=== PATIENT | female | born 2000 | race Asian ===

== ENCOUNTER 2022-07-23 10:14 | Inpatient (IN) ==
[2022-07-23] MEDS ORDERED: NS 0.9% 1000 ml BAG 1,000 ML IV ONE (10:42)
[2022-07-23 11:56] LABS: ALT 12 U/L (7-52); Acetaminophen < 15 mcg/mL; Albumin 4.8 g/dL (3.2-5.2); Albumin/Globulin Ratio 1.9 (1-3); Alcohol, S < 13 mg/dL (<13); Alkaline Phosphatase 74 U/L (35-149); Blood Urea Nitrogen 10 mg/dL (6-24); CO2 Carbon Dioxide 28 mmol/L (22-32); Calcium 9.1 mg/dL (8.6-10.3); Chloride 101 mmol/L (101-111); Creatine Kinase 76 U/L (10-223); Creatinine, Serum 0.53 mg/dL (0.51-0.95); Globulin 2.5 g/dL (2-4); Glucose 92 mg/dL (70-100); Lipase 18 U/L (11.0-82.0); Magnesium 2.1 mg/dL (1.9-2.7); Salicylate < 2.50 mg/dL (<30); Total Protein 7.3 g/dL (6.4-8.9); eGFR CKD-EPI 134.9 (>60)
[2022-07-23 12:00] LABS: Anion Gap 5 mmol/L (2-11); Sodium 134 mmol/L (135-145)
[2022-07-23 12:02] LABS: HCG Pregnancy < 0.60 mIU/mL
[2022-07-23 12:11] LABS: TSH Ultra Thyroid Stim Horm 1.28 mcIU/mL (0.34-5.60)
[2022-07-23 12:33] LABS: Hematocrit 36 % (35-47); Hemoglobin 11.8 g/dL (12.0-16.0); Mean Corpuscular HGB Conc 33 g/dL (31-36); Mean Corpuscular Hemoglobin 31 pg (27-31); Mean Corpuscular Volume 95 fL (80-97); Mean Platelet Volume 6.9 fL (7.4-10.4); Platelet Count 262 10^3/uL (150-450); Red Cell Distribution Width 12 % (10-15); White Blood Count 5.6 10^3/uL (3.5-10.8)
[2022-07-23 12:36] LABS: ABS Eosinophils 0.1 10^3/ul (0-0.6); ABS Lymphocytes 1.9 10^3/ul (1.0-4.8); ABS Monocytes 0.3 10^3/ul (0-0.8); Eosinophil % 1.9 %; Lymphocyte % 36.1 %; Nucleated Red Blood Cells % 0.1
[2022-07-23 12:57] LABS: Potassium Redraw 3.9 mmol/L (3.5-5.0)
[2022-07-23 13:41] LABS: Urine Appearance Cloudy; Urine Bilirubin Negative (Negative); Urine Blood Negative (Negative); Urine Color Amber; Urine Glucose Negative (Negative); Urine Ketones 2+ (Negative); Urine Nitrite Negative (Negative); Urine Protein Negative (Negative); Urine Specific Gravity 1.025 (1.002-1.030); Urine Urobilinogen Negative (Negative)
[2022-07-23 13:57] LABS: Urine Bacteria Absent (Absent); Urine Red Blood Cell 3+(>10/hpf) (Absent); Urine Squamous Epithelial Cell Present (Absent); Urine White Blood Cell Trace(0-5/hpf) (Absent)
[2022-07-23 14:04] LABS: Urine Benzodiazepine Screen Presumptive Positive (None Detect); Urine Cannabinoids Screen None Detected (None Detect); Urine Opiates Screen None Detected (None Detect)
[2022-07-23] MEDS ORDERED: Al Hydrox/Mg Hydrox/Simet LIQ 30 ML UDC PO PRN (15:17)
[2022-07-24] MEDS: Vitamin THERAPEUTIC TAB PO SCH (10:57)
[2022-07-25 07:24] LABS: HDL Cholesterol 48.4 mg/dL
[2022-07-25 07:53] VITALS: BP 104/70
[2022-07-25] MEDS: Vitamin THERAPEUTIC TAB PO SCH (09:50)
== END 2022-07-25 14:00 | disposition home or self-care (01) | DRG 884 ==
LOC: EDBD → ED 10:14 → EDHOLD 15:17 → BSU 18:41
PROVIDERS: ADMIT Psychiatry & Neurology Psychiatry; ATTEND Psychiatry & Neurology Psychiatry

== ENCOUNTER 2022-07-26 03:43 | Inpatient (IN) ==
[2022-07-26 06:43] LABS: Urine Benzodiazepine Screen None Detected (None Detect); Urine Cannabinoids Screen None Detected (None Detect); Urine Opiates Screen None Detected (None Detect)
[2022-07-26] MEDS: Vitamin THERAPEUTIC TAB PO SCH (07:49)
[2022-07-27] MEDS: Vitamin THERAPEUTIC TAB PO SCH (09:01)
[2022-08-01] MEDS: Al Hydrox/Mg Hydrox/Simet LIQ 30 ML UDC PO PRN (10:07)
[2022-08-03] MEDS: Al Hydrox/Mg Hydrox/Simet LIQ 30 ML UDC PO PRN (22:36)
[2022-08-04 08:13] VITALS: BP 108/68
== END 2022-08-04 11:00 | disposition home or self-care (01) | DRG 885 ==
LOC: ED 03:43 → BSU 08:44
PROVIDERS: ADMIT Psychiatry & Neurology Psychiatry; ATTEND Psychiatry & Neurology Psychiatry